=== PATIENT | male | born 1990 | race Two or more races ===

== ENCOUNTER 2017-10-27 06:24 | Emergency (ER) | payer OTHER ==
[~2017-10-27] VITALS: Ht 177.8 cm; Wt 72.6 kg
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
[2017-10-27 06:45] VITALS: BP 141/83
[2017-10-27] MEDS ORDERED: NORCO 5-325 TA1 EAC1 ORAL (06:47)
[2017-10-27] MEDS ORDERED: IBUPROFEN600 MG ORAL (06:47)
[2017-10-27 07:35] VITALS: BP 141/83
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
== END 2017-10-27 07:35 | disposition home or self-care (01) ==
LOC: EMR 07:05
DX: S62.306A Unspecified fracture of fifth metacarpal bone, right hand, initial encounter for closed fracture (principal); Y04.2XXA Assault by strike against or bumped into by another person, initial encounter; Y92.9 Unspecified place or not applicable
CPT/HCPCS: 99283